=== PATIENT | female | born 2000 | race Hispanic/Latino ===

== ENCOUNTER 2021-06-20 08:53 | Emergency (ER) | payer OTHER ==
[~2021-06-20] VITALS: Ht 162.6 cm; Wt 65.4 kg
[2021-06-20] MEDS ORDERED: PRENTAB53 PO (09:03)
--- NOTE | 2021-06-20 12:18 | REP ---
INDICATION: Fall yest, pain over 5th metacarpal COMPARISON: None. TECHNIQUE: Two views left foot. Four views are not obtained since the patient is 18 weeks . FINDINGS: There is no evidence of acute fracture, dislocation, or intrinsic bone disease. IMPRESSION: No fracture or dislocation. <Electronically signed by Moe Villafana > 06/20/21 [id number]
[2021-06-20 12:43] VITALS: BP 107/55
== END 2021-06-20 12:45 | disposition home or self-care (01) ==
LOC: M ED 08:53
DX: O99.891 Other specified diseases and conditions complicating pregnancy (principal); M79.672 Pain in left foot; Z3A.18 18 weeks gestation of pregnancy

== ENCOUNTER → 2021-11-08 | Outpatient (CLI) | payer OTHER ==
[~2021-11-08] VITALS: Ht 162.6 cm; Wt 83.1 kg
[~2021-11-08] MED LIST: FOSFOMYCIN TROMETHAMINE 3 GM POWDER PACKET (MONUROL) PO ONE; GNP200TA4 PO; HOME MED LIST COMPLETE! XX SCH; PRENTAB53 PO
[2021-11-08 09:53] VITALS: BP 121/67
[2021-11-08 10:54] LABS: APPEARANCE, URINE HAZY (CLEAR); BACTERIA, URINE AUTO 1+ (NEGATIVE); BILIRUBIN, URINE AUTO NEGATIVE (NEGATIVE); BLOOD, URINE BLOOD NEGATIVE (NEGATIVE); COLOR, URINE YELLOW (YELLOW); GLUCOSE, URINE (UA) AUTO NEGATIVE (NEGATIVE); KETONE, URINE AUTO NEGATIVE (NEGATIVE); LEUKOCYTE ESTERASE, URINE AUTO 1+ (NEGATIVE); MUCUS, URINE SMALL (NEGATIVE); NITRITE, URINE AUTO NEGATIVE (NEGATIVE); PROTEIN, URINE AUTO NEGATIVE (NEGATIVE); RBC, URINE AUTO 3 /HPF (0-3); SPECIFIC GRAVITY URINE AUTO 1.017 (1.002-1.035); SQUAMOUS EPITHELIAL CELL UR AU 6 /HPF (0-6); UROBILINOGEN, URINE AUTO 0.2 mg/dL (0.0-2.0); WBC, URINE AUTO 7 /HPF (0-3)
== END ==
LOC: M LDO 09:29
PROVIDERS: ATTEND Advanced Practice Midwife
DX: O26.893 Other specified pregnancy related conditions, third trimester (principal); R10.31 Right lower quadrant pain; Z3A.38 38 weeks gestation of pregnancy
CPT/HCPCS: 59025; 81001; 87086; G0463

== ENCOUNTER 2021-11-15 20:22 | Inpatient (IN) | payer OTHER ==
[~2021-11-15] VITALS: Ht 162.6 cm; Wt 84.3 kg
[~2021-11-15 20:22] MED LIST changes: +CIME200T4 PO; -FOSFOMYCIN TROMETHAMINE 3 GM POWDER PACKET (MONUROL) PO ONE; -GNP200TA4 PO; -HOME MED LIST COMPLETE! XX SCH
[2021-11-15 20:41] VITALS: BP 135/79
[2021-11-15] MEDS ORDERED: HOME MED LIST COMPLETE! XX SCH (20:45)
[2021-11-15] MEDS ORDERED: LIDOCAINE 1% MDV 20ML VIAL INFIL PRN (21:55)
[2021-11-15] MEDS ORDERED: CARBOPROST TROMETHAMINE 250 MCG/ML AMP IM PRN (21:55)
[2021-11-15] MEDS ORDERED: OXYTOCIN DRIP 30 UNITS in IV 1 EA IV PRN ×4 (21:55)
[2021-11-15] MEDS ORDERED: METHYLERGONOVINE MALEATE 0.2 MG/ML VIAL (J2210) IM PRN (21:55)
[2021-11-15] MEDS ORDERED: TRANEXAMIC ACID INJection 1,000 MG in NS 100 ML IV PRN (21:55)
[2021-11-15 22:26] LABS: HEMATOCRIT 39.6 % (36.0-47.0); HEMOGLOBIN 13.5 g/dl (12.0-15.5); MEAN CORPUSCULAR HEMOGLOBIN 31.3 pg (27.0-33.0); MEAN CORPUSCULAR HGB CONC 34.1 g/dl (32.0-36.5); MEAN CORPUSCULAR VOLUME 91.7 fl (80.0-96.0); PLATELET COUNT, AUTOMATED 256 10^3/uL (150-450); RED BLOOD COUNT 4.32 10^6/uL (4.00-5.40); WHITE BLOOD COUNT 10.7 10^3/uL (4.0-10.0)
[2021-11-15] MEDS ORDERED: OXYTOCIN DRIP 30 UNITS in IV 1 EA IV SCH (22:50)
[2021-11-16] VITALS (30 sets, daily range): BP systolic 103–138; BP diastolic 56–83
[2021-11-16] MEDS ORDERED: miSOPROStol 25MCG 1/4 TABLET PO ONE (10:05)
[2021-11-16] MEDS: LR 1,000 ML IV SCH ×3 (16:16→22:50)
[2021-11-16] MEDS ORDERED: ACETAMINOPHEN 325 MG TAB PO ONE (21:00)
[2021-11-17] VITALS (35 sets, daily range): BP systolic 93–133; BP diastolic 54–91
[2021-11-17] MEDS ORDERED: PROMETHAZINE 25MG/ML 1ML VIAL IV ONE (02:25)
[2021-11-17] MEDS ORDERED: BUTORPHANOL 2 MG/ML INJ (J0595) IV ONE (02:25)
[2021-11-17] MEDS: LR 1,000 ML IV SCH ×2 (05:16→06:50)
[2021-11-17] MEDS ORDERED: FENTANYL 2MCG/ML ROPIVACAINE 0.2% IN 0.9% NACL 100ML IVBAG As Ordered ONE (05:31)
[2021-11-17] MEDS ORDERED: NALOXONE INJ 0.4MG/1ML VIAL (J2310 PER 1MG) IV PRN (06:03)
[2021-11-17] MEDS ORDERED: REFRIGERATOR IV KEYS XX PRN (06:03)
[2021-11-17] MEDS ORDERED: LACTATED RINGER'S 1000 ML IV PRN (06:03)
[2021-11-17] MEDS ORDERED: EPIDURAL COMMENT XX SCH (06:03)
[2021-11-17] MEDS ORDERED: EPIDURAL/PCA KEYS XX PRN (06:03)
[2021-11-17] MEDS ORDERED: diphenhydrAMINE 50MG/ML VIAL (J1200) IV PRN (06:03)
[2021-11-17] MEDS ORDERED: FENTANYL/ROPIVACAINE/NACL BAG 100 ML EPIDURAL SCH (06:03)
[2021-11-17] MEDS ORDERED: ONDANSETRON 4MG/2ML VIAL IV PRN (06:03)
[2021-11-17] MEDS: ePHEDrine SULFATE 25 MG/5 ML(5MG/ML) SYRINGE IV PRN ×3 (07:59→08:08)
[2021-11-17] MEDS ORDERED: DIBUCAINE 1% OINTMENT 30GM TOP PRN (12:30)
[2021-11-17] MEDS ORDERED: IBUPROFEN 800 MG TAB PO PRN (12:30)
[2021-11-17] MEDS ORDERED: DOCUSATE SODIUM 100MG CAPSULE PO PRN (12:30)
[2021-11-17] MEDS ORDERED: RHOGAM 300 MCG (1500 IU) INJ (J2790) IM SCH (12:30)
[2021-11-17] MEDS ORDERED: MEASLES,MUMPS,RUBELLA VACCINE INJ (MMR-II) (90707) SC SCH (12:30)
[2021-11-17] MEDS ORDERED: METHYLERGONOVINE MALEATE 0.2 MG TAB PO PRN (12:30)
[2021-11-17] MEDS ORDERED: ACETAMINOPHEN TAB 650MG DOSE (2X325MG) PO PRN (12:30)
[2021-11-17] MEDS ORDERED: OXYTOCIN DRIP 30 UNITS in IV 1 EA IV SCH (12:45)
[2021-11-17] MEDS ORDERED: SLF 3 ML SYR IV PRN (14:25)
[2021-11-18] MEDS: SLF 3 ML SYR IV SCH ×4 (01:41→22:00)
[2021-11-18 06:00] VITALS: BP 122/59
[2021-11-18] MEDS: PRENATAL VITAMINS CHEWABLE TABLET PO SCH (08:36)
[2021-11-18 18:08] VITALS: BP 136/85
[2021-11-19] MEDS ORDERED: ACET1TAB55 PO (03:27)
[2021-11-19] MEDS ORDERED: COLA100C5 PO (03:27)
[2021-11-19] MEDS ORDERED: IBUP80TA PO (03:27)
[2021-11-19 05:50] VITALS: BP 129/71
[2021-11-19] MEDS: SLF 3 ML SYR IV SCH (06:00)
[2021-11-19] MEDS: PRENATAL VITAMINS CHEWABLE TABLET PO SCH (10:40)
== END 2021-11-19 13:40 | disposition home or self-care (01) | DRG 807 ==
LOC: M LDO 20:22 → M LDI 21:26 → M OBS 11-17 14:56
PROVIDERS: ADMIT Obstetrics & Gynecology; ATTEND Registered Nurse
PROC: 3E033VJ Introduction of Other Hormone into Peripheral Vein, Percutaneous Approach (ICD-10-PCS; 2021-11-15)
PROC: 10E0XZZ Delivery of Products of Conception, External Approach (ICD-10-PCS; principal; 2021-11-17)
DX: O42.12 Full-term premature rupture of membranes, onset of labor more than 24 hours following rupture (principal); Z37.0 Single live birth; Z3A.39 39 weeks gestation of pregnancy

== ENCOUNTER 2021-11-27 12:06 | Emergency (ER) | payer OTHER ==
[~2021-11-27] VITALS: Ht 162.6 cm; Wt 76.7 kg
[~2021-11-27 12:06] MED LIST changes: +ACET1TAB55 PO; +COLA100C5 PO; +IBUP80TA PO
[2021-11-27 15:59] LABS: BASO % 0.3 % (0.0-1.0); EOS % 0.2 % (0.0-3.0); HEMATOCRIT 49.8 % (36.0-47.0); HEMOGLOBIN 16.4 g/dl (12.0-15.5); LYMPH # 1.4 10^3/uL (1.5-5.0); LYMPH % 13.2 % (24.0-44.0); MEAN CORPUSCULAR HEMOGLOBIN 30.9 pg (27.0-33.0); MEAN CORPUSCULAR HGB CONC 32.9 g/dl (32.0-36.5); MEAN CORPUSCULAR VOLUME 93.8 fl (80.0-96.0); MONO # 0.5 10^3/uL (0.0-0.8); MONO % 4.3 % (2.0-8.0); NEUTROPHILS # 8.7 10^3/uL (1.5-8.5); NEUTROPHILS % 81.5 % (36.0-66.0); PLATELET COUNT, AUTOMATED 236 10^3/uL (150-450); RED BLOOD COUNT 5.31 10^6/uL (4.00-5.40); WHITE BLOOD COUNT 10.7 10^3/uL (4.0-10.0)
[2021-11-27 16:31] LABS: RSV AMPLIFICATION NEGATIVE (NEGATIVE)
[2021-11-27 16:56] LABS: ERYTHROCYTE SEDIMENTATION RATE 16 mm/hr (0-20)
[2021-11-27] MEDS ORDERED: CEFD300C41 PO (18:18)
[2021-11-27] MEDS ORDERED: cefTRIAXone SOD 1GM VIAL (J0696 PER 250MG) IM ONE (18:20)
[2021-11-27] MEDS ORDERED: LIDOCAINE 1% SDV 5ML VIAL DILUENT ONE (18:20)
[2021-11-27 18:26] VITALS: BP 111/65
[2021-11-27] MEDS ORDERED: ACETAMINOPHEN 325 MG TAB PO ONE (18:35)
== END 2021-11-27 18:44 | disposition home or self-care (01) ==
LOC: M ED 12:06
DX: O99.893 Other specified diseases and conditions complicating puerperium (principal); N39.0 Urinary tract infection, site not specified
CPT/HCPCS: 36415; 81001; 85025; 85652; 86140; 87040; 87086; 87631; 96372; 99283; J0696

== ENCOUNTER 2023-06-17 12:03 | Emergency (ER) | payer OTHER ==
[~2023-06-17] VITALS: Ht 162.6 cm; Wt 73.3 kg
[~2023-06-17 12:03] MED LIST changes: +CEFD300C42 PO
[2023-06-17] MEDS ORDERED: METOCLOPRAMIDE INJ 10MG/2ML VIAL IV ONE (13:15)
[2023-06-17] MEDS ORDERED: ACETAMINOPHEN *IV* 1,000 MG in IV 1 EA IV ONE (13:15)
[2023-06-17] MEDS ORDERED: NS 1,000 ML IV ONE (13:15)
[2023-06-17 13:42] LABS: BASO % 0.3 % (0.0-1.0); EOS # 0.1 10^3/uL (0.0-0.5); EOS % 1.8 % (0.0-3.0); HEMATOCRIT 40.2 % (36.0-47.0); LYMPH # 2.8 10^3/uL (1.5-5.0); LYMPH % 38.5 % (24.0-44.0); MEAN CORPUSCULAR HEMOGLOBIN 31.5 pg (27.0-33.0); MEAN CORPUSCULAR HGB CONC 34.8 g/dl (32.0-36.5); MEAN CORPUSCULAR VOLUME 90.3 fl (80.0-96.0); MONO # 0.6 10^3/uL (0.0-0.8); MONO % 8.4 % (2.0-8.0); NEUTROPHILS # 3.7 10^3/uL (1.5-8.5); NEUTROPHILS % 50.9 % (36.0-66.0); PLATELET COUNT, AUTOMATED 250 10^3/uL (150-450); RED BLOOD COUNT 4.45 10^6/uL (4.00-5.40); WHITE BLOOD COUNT 7.2 10^3/uL (4.0-10.0)
[2023-06-17 14:06] LABS: BLOOD UREA NITROGEN 11 MG/DL (9-23); CALCIUM LEVEL 9.3 MG/DL (8.5-10.1); CARBON DIOXIDE LEVEL 26 MMOL/L (20-31); CHLORIDE LEVEL 106 MMOL/L (98-107); GLOMERULAR FILTRATION RATE > 60.0 (>60); GLUCOSE, FASTING 92 MG/DL (60-100); SODIUM LEVEL 141 MMOL/L (136-145)
[2023-06-17] MEDS ORDERED: ISOVUE-370 76% 100ML VIAL As Ordered ONE (14:14)
[2023-06-17] MEDS ORDERED: KETOROLAC 30 MG/ML 1ML VIAL IV ONE (14:55)
[2023-06-17] MEDS ORDERED: dexAMETHasone 20MG/5ML VIAL IV ONE (15:25)
[2023-06-17] MEDS ORDERED: SUMA25TA3 PO (15:29)
[2023-06-17 15:35] VITALS: BP 110/58; TEMP 97.4; O2SAT 100
== END 2023-06-17 15:44 | disposition home or self-care (01) ==
LOC: M ED 12:03
DX: R51.9 Headache, unspecified (principal)
CPT/HCPCS: 70450; 70496; 80048; 83735; 84702; 85025; 96361; 96374; 96375; 99284; J1100; J1885; J2765; Q9967

== ENCOUNTER 2023-11-27 20:48 | Emergency (ER) | payer OTHER ==
[~2023-11-27] VITALS: Ht 162.6 cm; Wt 72.0 kg
[~2023-11-27 20:48] MED LIST changes: +CEFD1CAP9 PO; -CEFD300C42 PO; -CIME200T4 PO; +CIME200T40 PO; +SUMA25TA3 PO
[2023-11-28 01:00] VITALS: BP 111/64; TEMP 98.5; O2SAT 99
== END 2023-11-28 01:01 | disposition home or self-care (01) ==
LOC: M ED 20:48
DX: R11.2 Nausea with vomiting, unspecified (principal); R19.7 Diarrhea, unspecified; Z20.9 Contact with and (suspected) exposure to unspecified communicable disease

== ENCOUNTER 2024-09-26 01:25 | Emergency (ER) | payer OTHER ==
[~2024-09-26] VITALS: Ht 165.1 cm; Wt 61.3 kg
[2024-09-26 01:44] LABS: ABG BASE EXCESS -3.4 (-2.0-2.0); ABG HCO3 22.8 MMOL/L (22.0-26.0); ABG PARTIAL PRESSURE CO2 44.7 mmHg (35.0-45.0); ABG PARTIAL PRESSURE O2 174.6 mmHg (75.0-100.0); ABG STANDARD HCO3 21.8 MMOL/L. (22.0-26.0); ABG TOTAL CO2 24.1 MMOL/L (22.0-29.0); ABG pH (ARTERIAL) 7.325 UNITS (7.350-7.450)
[2024-09-26 01:56] LABS: BASO % 0.2 % (0.0-1.0); EOS % 0.2 % (0.0-3.0); HEMATOCRIT 45.6 % (36.0-47.0); HEMOGLOBIN 15.4 g/dl (12.0-15.5); LYMPH # 3.4 10^3/uL (1.5-5.0); LYMPH % 32.1 % (24.0-44.0); MEAN CORPUSCULAR HEMOGLOBIN 31.6 pg (27.0-33.0); MEAN CORPUSCULAR HGB CONC 33.8 g/dl (32.0-36.5); MEAN CORPUSCULAR VOLUME 93.6 fl (80.0-96.0); MONO # 0.6 10^3/uL (0.0-0.8); MONO % 5.7 % (2.0-8.0); NEUTROPHILS # 6.5 10^3/uL (1.5-8.5); NEUTROPHILS % 61.6 % (36.0-66.0); PLATELET COUNT, AUTOMATED 208 10^3/uL (150-450); RED BLOOD COUNT 4.87 10^6/uL (4.00-5.40); WHITE BLOOD COUNT 10.5 10^3/uL (4.0-10.0)
[2024-09-26] MEDS: NS (Normal Saline) 0.9% 1,000 ML IV ONE (02:07)
[2024-09-26 02:17] LABS: ALBUMIN 3.3 G/DL (3.2-5.2); ALKALINE PHOSPHATASE 50 U/L (35-104); ALT/SGPT 12 U/L (7.0-40); AST/SGOT 25 U/L (<34); BILIRUBIN,DIRECT < 0.1 MG/DL (<0.4); BILIRUBIN,TOTAL 0.2 MG/DL (0.3-1.2); BLOOD UREA NITROGEN 8 MG/DL (9-23); CALCIUM LEVEL 6.9 MG/DL (8.5-10.1); CARBON DIOXIDE LEVEL 23 MMOL/L (20-31); CHLORIDE LEVEL 113 MMOL/L (98-107); CREATININE FOR GFR 0.64 MG/DL (0.55-1.30); GLOMERULAR FILTRATION RATE > 60.0 (>60); GLUCOSE, FASTING 67 MG/DL (60-100); POTASSIUM SERUM 3.4 MMOL/L (3.5-5.1); SALICYLATE LEVEL < 3.0 MG/DL (<30); SODIUM LEVEL 148 MMOL/L (136-145); TOTAL PROTEIN 6.4 G/DL (5.7-8.2)
[2024-09-26 02:19] LABS: THYROID STIMULATING HORMONE 2.539 uIU/ML (0.55-4.78)
[2024-09-26 02:30] LABS: AMPHETAMINES LEVEL URINE NEGATIVE (NEGATIVE); BARBITURATES URINE NEGATIVE (NEGATIVE); BENZODIAZEPINES URINE NEGATIVE (NEGATIVE); CANNABINOIDS URINE NEGATIVE (NEGATIVE); COCAINE METABOLITE URINE NEGATIVE (NEGATIVE); METHADONE URINE NEGATIVE (NEGATIVE); OPIATES URINE NEGATIVE (NEGATIVE); PHENCYCLIDINE URINE NEGATIVE (NEGATIVE)
[2024-09-26 02:49] LABS: ETHYL ALCOHOL (ETHANOL) 0.352 % (0.000-0.010)
[2024-09-26 02:54] LABS: OSMOLALITY SERUM 374 MOSM/KG (275-295)
[2024-09-26] MEDS ORDERED: LORazepam 2 MG TAB PO PRN (03:10)
[2024-09-26] MEDS: THIAMINE 100 MG TAB PO SCH (04:00)
[2024-09-26] MEDS: MULTIVITAMINS/MINERALS THERAP 1 TAB PO SCH (09:00)
[2024-09-26] MEDS: FOLIC ACID 1MG TAB PO SCH (09:00)
[2024-09-26 10:17] VITALS: TEMP 97.3; O2SAT 100
[2024-09-26 10:25] VITALS: BP 105/65
== END 2024-09-26 10:25 | disposition home or self-care (01) ==
LOC: EDBD 01:25 → M ED 01:25
DX: F10.120 Alcohol abuse with intoxication, uncomplicated (principal)